=== PATIENT | female | born 1960 | race Caucasian/White ===

== ENCOUNTER 2017-08-09 20:12 | Inpatient (IN) | payer MEDICAID ==
[~2017-08-09] VITALS: Ht 167.6 cm; Wt 56.2 kg
[2017-08-09] MEDS ORDERED: LAMO25 PO (20:24)
[2017-08-09] MEDS ORDERED: CLON1 PO (20:24)
[2017-08-09] MEDS ORDERED: ARIP10TA8 PO (20:24)
[2017-08-09 20:54] LABS: ANION GAP 8 mmol/L (8-16); CALCIUM, TOTAL 8.5 mg/dL (8.8-10.5); CARBON DIOXIDE 29 mmol/L (22-29); CHLORIDE 107 mmol/L (98-107); CREATININE 0.95 mg/dL (0.60-1.30); GLOMERULAR FILTR. RATE CALC > 60 mL/min (>60); GLUCOSE,RANDOM 85 mg/dL (70-110); SODIUM SERUM 144 mmol/L (136-145); UREA NITROGEN, BLOOD 10 mg/dL (7-18)
[2017-08-09 20:58] LABS: BASOPHILS % (AUTO) 0.7 % (0.0-2.0); EOSINOPHILS % (AUTO) 2.3 % (1.0-6.0); HEMATOCRIT 33.2 % (36-46); HEMOGLOBIN 11.3 g/dL (12.0-16.0); LYMPHOCYTES # (AUTO) 2.6 K/uL (1.0-4.8); LYMPHOCYTES % (AUTO) 38.3 % (22.0-44.0); MEAN CORPUSCULAR HEMOGLOBIN 29.7 pg (26.0-34.0); MEAN CORPUSCULAR HGB CONC 34.1 G/dL (31.0-37.0); MEAN CORPUSCULAR VOLUME 87 fL (80-100); MONOCYTES # (AUTO) 0.4 K/uL (0.1-1.0); MONOCYTES % (AUTO) 5.6 % (2.0-9.0); NEUTROPHILS # (AUTO) 3.6 K/uL (1.8-7.7); NEUTROPHILS % (AUTO) 53.1 % (40.0-70.0); PLATELET COUNT (AUTO) 234 K/uL (150-450); RED CELL DISTRIBUTION WIDTH 13.3 % (11.5-14.5)
[2017-08-09 20:59] LABS: ALANINE AMINOTRANSFERASE 22 U/L (12-78); ALBUMIN 3.6 g/dL (3.4-5.0); ALKALINE PHOSPHATASE 78 U/L (46-116); ASPARTATE AMINOTRANSFERASE 23 U/L (15-37); BILIRUBIN,TOTAL 0.4 mg/dL (0.1-1.0)
[2017-08-09] MEDS ORDERED: SODIUM CHLORIDE 0.9% 1,000 ML IV ONE (21:00)
[2017-08-09 21:44] LABS: SALICYLATE 5.4 mg/dL (2.8-20.0)
[2017-08-09 21:52] LABS: ACETAMINOPHEN < 2 mcg/mL (10-30)
[2017-08-09 21:59] LABS: ABG A-A DIFF O2 22.1 mmHg (10-20.0); ABG BASE EXCESS -3.4 mmol/L (-2.0-3.0); ABG HCO3 21.7 mmol/L (22.0-26.0); ABG METHEMOGLOBIN 0.3 % (0.0-1.5); ABG OXYGEN CONTENT 13.4 mL/dL (15.0-23.0); ABG OXYGEN SATURATION 93.7 % (95.0-98.0); ABG OXYHEMOGLOBIN 88.5 % (94.0-100.0); ABG PCO2 42 mmHg (35-45); ABG PH 7.341 (7.35-7.450); ABG TOTAL HEMOGLOBIN 10.7 G/dL (12.0-18.0); SOURCE, BLOOD GAS ARTERIAL; TEMPERATURE, FAHRENHEIT, BG 98.6 FAHREN (96.0-98.6)
[2017-08-09 22:00] LABS: ABG CARBOXYHEMOGLOBIN 5.2 % (0.0-1.5); SITE, BLOOD GAS RT RADIAL
[2017-08-09 22:01] LABS: O2 DEVICE,BLOOD GAS ROOM AIR (ROOM AIR)
[2017-08-09] MEDS ORDERED: POTASSIUM CHLORIDE 20 MEQ ER TABLET PO ONE (22:45)
[2017-08-10] MEDS ORDERED: HALOPERIDOL 5 MG TABLET PO PRN (00:15)
[2017-08-10 00:57] LABS: CHOL/HDL RATIO 2.8 (3.9-5.7); CHOLESTEROL 167 mg/dL (131-200); HDL CHOLESTEROL 60 mg/dL (40-60); LDL CHOL (CALC.) 86 mg/dL (0-130); THYROID STIMULATING HORMONE 2.37 uIU/mL (0.36-3.74); TRIGLYCERIDES 107 mg/dL (15-150)
[2017-08-10] MEDS ORDERED: INFLUENZA VIRUS VACCINE QVS 2017-18 (3YR+)/PF 60 MCG/0.5 ML SYRINGE IM ONE (01:45)
[2017-08-10 01:57] VITALS: BP 104/68
[2017-08-10 09:55] VITALS: BP 107/71
[2017-08-10] MEDS ORDERED: CloNIDine HCL 0.1 MG TABLET PO PRN (10:15)
[2017-08-10] MEDS ORDERED: LOPERAMIDE HCL 2 MG CAPSULE PO PRN (10:15)
[2017-08-10] MEDS ORDERED: MAGNESIUM HYDROXIDE SUSPENSION 30 ML UDCUP PO PRN (10:15)
[2017-08-10] MEDS ORDERED: BACITRACIN 28.4 GM OINTMENT TP PRN (10:15)
[2017-08-10] MEDS ORDERED: BENZOCAINE/MENTHOL LOZENGE [8 LOZENGES/PACKET] MM PRN (10:15)
[2017-08-10] MEDS ORDERED: MAG HYDROX/AL HYDROX/SIMETH ES 30 ML SUSPENSION UDCUP PO PRN (10:15)
[2017-08-10] MEDS ORDERED: ONDANSETRON HCL 4 MG TABLET PO PRN (10:15)
[2017-08-10] MEDS ORDERED: ALBUTEROL SULFATE HFA 90 MCG/PUFF 8 GM INHALER IH PRN (10:15)
[2017-08-10] MEDS ORDERED: PETROLATUM,WHITE 71 GM JELLY TP PRN (10:15)
[2017-08-10] MEDS ORDERED: IBUPROFEN 600 MG TABLET PO PRN (10:15)
[2017-08-10] MEDS ORDERED: ACETAMINOPHEN 325 MG TABLET PO PRN (10:15)
[2017-08-10] MEDS: LORazepam 2 MG TABLET PO PRN ×2 (11:13→16:54)
[2017-08-10] MEDS: ARIPiprazole 10 MG TABLET PO SCH (12:35)
[2017-08-10] MEDS: LamoTRIgine 25 MG TABLET PO SCH ×2 (12:35→16:54)
[2017-08-11] MEDS: LORazepam 2 MG TABLET PO PRN ×4 (05:44→19:35)
[2017-08-11] MEDS: MULTIVITAMINS WITH MINERALS, THERAPEUTIC TABLET PO SCH (08:58)
[2017-08-11] MEDS: LamoTRIgine 25 MG TABLET PO SCH ×2 (08:59→17:00)
[2017-08-11] MEDS: ARIPiprazole 10 MG TABLET PO SCH (08:59)
[2017-08-11 10:03] VITALS: BP 104/63
[2017-08-11 14:42] VITALS: BP 122/76
[2017-08-11 17:00] VITALS: BP 114/74
[2017-08-12 00:10] VITALS: BP 108/61
[2017-08-12] MEDS: ZOLPIDEM TARTRATE 10 MG TABLET PO PRN ×2 (00:15→20:18)
[2017-08-12 07:25] LABS: % IRON SATURATION 19.4 % (22-44)
[2017-08-12 08:15] VITALS: BP 118/71
[2017-08-12] MEDS: MULTIVITAMINS WITH MINERALS, THERAPEUTIC TABLET PO SCH (09:06)
[2017-08-12] MEDS: LORazepam 2 MG TABLET PO PRN ×2 (09:06→16:06)
[2017-08-12] MEDS: LamoTRIgine 25 MG TABLET PO SCH ×2 (09:06→16:06)
[2017-08-12] MEDS: ARIPiprazole 10 MG TABLET PO SCH (09:39)
[2017-08-12 18:32] VITALS: BP 118/73
[2017-08-13 05:15] VITALS: BP 122/83
[2017-08-13 08:15] VITALS: BP 114/78
[2017-08-13] MEDS: LamoTRIgine 25 MG TABLET PO SCH ×2 (09:02→16:03)
[2017-08-13] MEDS: ARIPiprazole 10 MG TABLET PO SCH (09:02)
[2017-08-13] MEDS: PRENATAL VIT#96/FERROUS FUM/FA TABLET PO SCH (09:02)
[2017-08-13] MEDS: LORazepam 2 MG TABLET PO PRN ×2 (09:46→16:03)
[2017-08-13 17:00] VITALS: BP 110/78
[2017-08-13] MEDS: ZOLPIDEM TARTRATE 10 MG TABLET PO PRN (21:18)
[2017-08-14] MEDS: LamoTRIgine 25 MG TABLET PO SCH (09:05)
[2017-08-14] MEDS: ARIPiprazole 10 MG TABLET PO SCH (09:05)
[2017-08-14] MEDS: PRENATAL VIT#96/FERROUS FUM/FA TABLET PO SCH (09:05)
[2017-08-14 09:42] VITALS: BP 132/77
[2017-08-14] MEDS ORDERED: PREN1TAB80 PO (09:50)
[2017-08-14] MEDS: LORazepam 2 MG TABLET PO PRN (10:50)
== END 2017-08-14 12:00 | disposition home or self-care (01) | DRG 753 ==
LOC: EMS 20:14 → 3EI 08-10 00:40
PROC: 3E0234Z Introduction of Serum, Toxoid and Vaccine into Muscle, Percutaneous Approach (ICD-10-PCS; principal; 2017-08-10)
DX: F31.4 Bipolar disorder, current episode depressed, severe, without psychotic features (principal); E83.51 Hypocalcemia; E87.6 Hypokalemia; F10.129 Alcohol abuse with intoxication, unspecified; F17.210 Nicotine dependence, cigarettes, uncomplicated; F41.9 Anxiety disorder, unspecified; G47.00 Insomnia, unspecified; J44.9 Chronic obstructive pulmonary disease, unspecified; Y90.6 Blood alcohol level of 120-199 mg/100 ml; D64.9 Anemia, unspecified; F60.9 Personality disorder, unspecified; T42.4X2A Poisoning by benzodiazepines, intentional self-harm, initial encounter; T58.92XA Toxic effect of carbon monoxide from unspecified source, intentional self-harm, initial encounter; Y92.89 Other specified places as the place of occurrence of the external cause; Z79.899 Other long term (current) drug therapy; Z23 Encounter for immunization
CPT/HCPCS: 82306; 82805; 83540; 83550; 84132; 84443; 96360; 96361; 99285; G0480; G0481; J7030